=== PATIENT | female | born 1945 | race Caucasian/White ===

== ENCOUNTER 2017-12-19 09:35 | Outpatient (CLI) | payer MEDICARE, OTHER, SELFPAY ==
--- NOTE | 2017-12-19 09:27 | DI.RAD_ITS ---
SYMPTOM/DIAGNOSIS: F/U RT TKA AND LT TKA LEFT KNEE: The patient is status post TKR. The prosthesis is in good position. Surrounding bone intact with no change when compared with prior images. RIGHT KNEE: The patient is status post TKR. The prosthesis in good position. Surrounding bone intact.
== END 2017-12-19 09:55 ==
PROVIDERS: PCP Internal Medicine; Visit Provider Student in an Organized Health Care Education/Training Program
DX: Z96.653 Presence of artificial knee joint, bilateral (principal); Z47.1 Aftercare following joint replacement surgery; M17.0 Bilateral primary osteoarthritis of knee; E11.9 Type 2 diabetes mellitus without complications; Z79.84 Long term (current) use of oral hypoglycemic drugs; I10 Essential (primary) hypertension; M25.552 Pain in left hip
CPT/HCPCS: 99213; 73560

== ENCOUNTER 2018-06-03 00:58 | Outpatient (CLI) | payer MEDICARE, OTHER, SELFPAY ==
--- NOTE | 2018-06-03 08:30 | DI.MAMMO_ITS ---
SYMPTOM/DIAGNOSIS: SCREENING, Z12.31 MAMMOGRAMS: Mammograms were interpreted according to the usual protocol including computer analysis with CAD system, tomosynthesis and C view imaging. The breasts are of moderate density with fairly symmetrical distribution of fibroglandular tissue. No dominant mass or clumped microcalcification is identified in either breast. Nonspecific soft nodularity is noted at multiple sites bilaterally. No gross interval change in appearance in comparison with previous examinations including 07/2016. No new mass or clumped microcalcification is seen. CONCLUSION: No specific evidence of malignancy at this time. Routine screening examinations are suggested at yearly intervals in this age group according to the ACS/ACR guidelines. Category 1. Breast density, Category B. MQSA ASSESSMENT OF FINDINGS: Negative. Category 1. Patient will receive a letter notifying them of these results. BI-RADS category B. There are scattered areas of fibroglandular density.
== END 2018-06-03 01:18 ==
PROVIDERS: PCP Internal Medicine; Visit Provider Internal Medicine
DX: Z12.31 Encounter for screening mammogram for malignant neoplasm of breast (principal)
CPT/HCPCS: 77063; 77067

== ENCOUNTER 2018-09-17 07:49 | Outpatient (CLI) | payer MEDICARE, OTHER, SELFPAY ==
[2018-09-17 09:00] LABS: Anion Gap 12.5 mmol/L (3-11); BUN 15 mg/dL (7-18); CO2 26.5 mmol/L (21.0-32.0); Calcium 8.8 mg/dL (8.5-10.1); Calculated LDL 83 mg/dL; Chloride 104 mmol/L (98-107); Cholesterol 158 mg/dL (50-200); Glucose 193 mg/dL (70-100); HDL Cholesterol 44 mg/dL (40-60); Potassium 3.8 mmol/L (3.5-5.1); Sodium 143 mmol/L (136-145); Triglyceride 155 mg/dL (30-150)
[2018-09-17 12:18] LABS: COMMENT (LAB VIEW ONLY) 167.87 mg/dL; Microalb ug/mg Crea 23.4 ug/mg Cr
== END 2018-09-17 08:09 ==
PROVIDERS: PCP Internal Medicine; Visit Provider Internal Medicine
DX: I10 Essential (primary) hypertension (principal); E78.5 Hyperlipidemia, unspecified; E11.9 Type 2 diabetes mellitus without complications
CPT/HCPCS: 36415; 80048; 80061; 83721; 82043; 82570

== ENCOUNTER 2018-09-21 16:20 | Emergency (ER) | payer MEDICARE, OTHER, SELFPAY ==
[2018-09-21 16:24] VITALS: BP 158/102; PULSE 104; RESP 16; TEMP 36.3; O2SAT 94
--- NOTE | 2018-09-21 16:31 | DI.CT_ITS ---
SYMPTOM/DIAGNOSIS: FALL CT BRAIN: Noncontrast. No priors. There is mild prominence of the ventricles and sulci which may be due to age related cerebral atrophy. The ventricles are intact. The basilar cisterns are patent. No acute intracranial hemorrhage, midline shift or mass effect is identified. The ventricles are intact. The basilar cisterns arae patent. The visualizes paranasal sinuses are clear as are the mastoid air cells. The calvarium is intact. IMPRESSION: No acute intracranial process. CT CERVICAL SPINE: Multiple contiguous axial images of the cervical spine were obtained. Sagittal and coronal reformatted images were evaluated as well. No acute fracture or subluxation is seen. There is straightening of the normal cervical lordosis. This may be due to patient positioning, degenerative changes or muscle spasm. There are multi-level degenerative changes throughout the cervical spine. The findings are most marked at C-5,6 and C6-C7. There is no prevertebral soft tissue swelling. The lung apices are clear. IMPRESSION: No acute fracture or subluxation in the cervical spine.
--- NOTE | 2018-09-21 16:54 | ED.GENADUL_ITS ---
Discharge Plan Disposition Patient Disposition: HOME Condition: Stable Discharge Details Chief Complaint: Orthopedic Clinical Impression: Fall, Acute knee pain Primary Care Provider: Najma Suh ED Provider: Jeremy Burdick Home Meds and New Rx's Prescriptions: No Action fluticasone propionate [Flonase Allergy Relief] 50 mcg/actuation spray,suspension 2 spray CHRISTY DAILY Qty: 16 RF: 1 apixaban 5 mg tablet 5 mg PO BID Qty: 60 RF: 5 Degshxkerfd-Etbek-YLL Complex 1 EACH tablet 1 ea PO DAILY RF: 0 Varicella-Zoster Ge/As01b/Pf [Shingrix Vial Kit] 50 MCG INJ 50 mcg IM ONCE Qty: 1 RF: 1 atorvastatin 40 mg tablet 40 mg PO DAILY Qty: 90 RF: 3 chlorthalidone 25 mg tablet 12.5 mg PO DAILY Qty: 45 RF: 4 glipizide [Glucotrol] 5 mg tablet 10 mg PO BID Qty: 360 RF: 4 metformin [Glucophage] 500 mg tablet 500 mg PO BID Qty: 180 RF: 4 Januvia 100 mg tablet 100 mg PO DAILY Qty: 90 RF: 3 (DME) Blood Glucose Test strip See Dose Instructions .ROUTE .MEDSUPPLY Qty: 10 RF: 0 acetaminophen [Mapap Extra Strength] 500 MG tablet 1,000 mg PO Q8H PRN PRNQty: 120 RF: 0 docusate sodium [Colace] 100 MG capsule 100 mg PO BID PRN PRN (Reason: Constipation) RF: 0 calcium carbonate-vitamin D3 1 EACH tablet 1 ea PO DAILY RF: 0 Discharge Instructions Instructions: Knee Pain (ED) Additional Instructions: Please follow-up with your primary care doctor early this week please return to the emergency department for headache nausea vomiting increasing pain or other concern. Discharge Data Discharge Date/Time-TO BE ENTERED AT DEPARTURE: 09/21/18 20:07 Medical Decision Making 73-year-old female status post mechanical fall no loss of consciousness no shortness of breath no chest pain do not feel medical work-up is appropriate at this time. Patient with right knee swelling concern for mild effusion full range of motion no crepitus positive distal pulses distal neurovascular exam and popliteal pulses. Left knee mild tenderness palpation full range of motion no edema no effusion no ecchymosis will defer imaging. Neck with full range of motion but mild lateral tenderness positive headache no clear head trauma but patient on Eliquis. Will obtain plain films of the right knee had and C-spine CT scans and observe patient in the emergency department.. Patient resting comfortably scans negative x-ray right knee shows positive effusion consistent with exam no fracture no hardware changes will DC with pain control rest and strict return. HPI 73-year-old past medical history of diabetes GERD hypertension pulmonary embolus on Eliquis presents status post mechanical fall tripped over the side of her ramp up to her house falling onto right knee and striking her head against the house.no loss of consciousness no nausea vomiting positive headache positive neck pain positive right knee pain ambulatory with mild limp. Patient past medical history of obesity and bilateral knee replacement concerned that knee is swelling. No shortness of breath chest pain nausea vomiting diarrhea loss of consciousness fever chills or other complaints. General Date/Time Provider Initiated Documentation: 09/21/18 16:31 . Related Data Home Medications Medication Instructions Recorded Confirmed calcium carbonate-vitamin D3 1 ea PO DAILY 10/31/16 09/21/18 acetaminophen [Mapap Extra 1,000 mg PO Q8H PRN PRN #120 tab 01/06/17 09/21/18 Strength] docusate sodium [Colace] 100 mg PO BID PRN PRN cap 01/06/17 09/21/18 rbobudgj-phptr-jmo9-C-karen-bor 1 ea PO DAILY tab 08/29/17 09/21/18 [Hthnqhu-Egqvc-Nwt Complex Cplt] atorvastatin 40 mg tablet 40 mg PO DAILY #90 tab-cap 04/09/18 09/21/18 chlorthalidone 25 mg tablet 12.5 mg PO DAILY #45 tab-cap 04/09/18 09/21/18 glipizide 5 mg tablet 10 mg PO BID #360 tab-cap 04/09/18 09/21/18 metformin 500 mg tablet 500 mg PO BID #180 tab-cap 04/09/18 09/21/18 sitagliptin 100 mg tablet 100 mg PO DAILY #90 tab-cap 04/09/18 09/21/18 blood sugar diagnostic #10 each 04/17/18 09/03/18 apixaban 5 mg tablet 5 mg PO BID #60 tab 08/27/18 09/21/18 fluticasone propionate 50 2 spray CHRISTY DAILY #16 gm 08/27/18 09/21/18 mcg/actuation nasal spray,suspension Previous Rx's Medication Instructions Recorded acetaminophen [Mapap Extra 1,000 mg PO Q8H PRN PRN #120 tab 01/06/17 Strength] docusate sodium [Colace] 100 mg PO BID PRN PRN cap 01/06/17 atorvastatin 40 mg tablet 40 mg PO DAILY #90 tab-cap 04/09/18 chlorthalidone 25 mg tablet 12.5 mg PO DAILY #45 tab-cap 04/09/18 glipizide 5 mg tablet 10 mg PO BID #360 tab-cap 04/09/18 metformin 500 mg tablet 500 mg PO BID #180 tab-cap 04/09/18 sitagliptin 100 mg tablet 100 mg PO DAILY #90 tab-cap 04/09/18 apixaban 5 mg tablet 5 mg PO BID #60 tab 08/27/18 fluticasone propionate 50 2 spray CHRISTY DAILY #16 gm 08/27/18 mcg/actuation nasal spray,suspension Allergies Allergy/AdvReac Type Severity Reaction Status Date / Time grass pollen Allergy Mild Itching Verified 09/21/18 16:28 tree and shrub pollen Allergy Mild Itching Verified 09/21/18 16:28 dust Allergy Mild Swelling/Ed Uncoded 09/21/18 16:28 anson General Stated Complaint: Orthopedic CEE: 4 Review of Systems Review of Systems All systems reviewed & are unremarkable except as noted in HPI and below PFSH Medical History DM (diabetes mellitus) GERD (gastroesophageal reflux disease) HTN (hypertension) PE (pulmonary thromboembolism) Surgical History (Updated 09/21/18 @ 16:29 by Katlin Arias) back surgery Colonoscopy - IV Sedation (03/10/16) finger surgery History of bilateral knee replacement (Acute) Oophrectomy, Right Family History Mother Diabetes Father Diabetes Heart disease Stroke Brother Heart disease Brother No problems noted. 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 Working smoke detector in home: No Fire extinguisher in home: No Do you feel safe at home: Yes Exam Const General: cooperative, healthy appearing, no acute distress, well developed and well groomed Nutritional Appearance: well nourished Orientation: alert, awake and oriented x3 HENMT Head: normal to inspection, normocephalic and atraumatic Ears: hearing grossly normal bilaterally and external ears normal General nose exam: external nose normal Face and sinus: normal facial exam Mouth: oral mucosae normal and lip normal Eyes Conjunctivae: conjunctivae normal Sclera: sclerae normal Neck Neck: No JVD Chest Chest: normal inspection of the chest Resp Effort & Inspection: normal respiratory effort and able to speak in complete sentences Auscultation: clear to auscultation bilaterally Cardio Jugular venous pressure: no JVD Rate: regular rate Rhythm: regular rhythm Heart Sounds: no murmurs GI Inspection: normal to inspection Palpation: soft, firm and guarding Percussion: normal to percussion Skin General skin exam: no rashes or lesions noted Lesions: no lesions Rashes: no rashes Trauma: no lacerations or abrasions Neuro General: alert, awake and oriented x3 Cognition: normal cognition Motor: muscle tone normal throughout Sensory Exam: no sensory deficits noted Extrem General: normal to inspection Right upper extremity: normal to inspection Left upper extremity: normal to inspection Psych Appearance: grossly normal Mental Status: mental status grossly normal Speech and Movement: speech and movement normal Course Vital Signs Temperature 36.3 C L 09/21/18 16:24 Pulse 104 H 09/21/18 16:24 Respiratory Rate 16 09/21/18 16:24 Blood Pressure 158/102 H 09/21/18 16:24 Pulse Oximetry 94 L 09/21/18 16:24 Temperature 36.3 C L 09/21/18 16:24 Temperature Source Skin 09/21/18 16:24 Pulse 104 H 09/21/18 16:24 Respiratory Rate 16 09/21/18 16:24 Respiratory Effort Non-Labored 09/21/18 16:27 Blood Pressure 158/102 H 09/21/18 16:24 Blood Pressure Position Sitting 09/21/18 16:24 Pulse Oximetry 94 L 09/21/18 16:24 Pain Level 6 09/21/18 16:32
--- NOTE | 2018-09-21 17:55 | DI.RAD_ITS ---
SYMPTOM/DIAGNOSIS: FALL RIGHT KNEE: Three views. Comparison 12/19/17 The patient has a right total knee replacement. No evidence of hardware failure is seen. The bones are intact and normally mineralized. Portions of the patella are obscured on the lateral view by the overlying orthopaedic hardware. There does appear to be a small joint effusion and vascular calcifications. IMPRESSION: No acute fracture or dislocation.
--- NOTE | 2018-09-21 18:04 | DI.VRAD_ITS ---
EXAM: XR Right Knee EXAM DATE/TIME: 09/21/2018 4:33 PM CLINICAL HISTORY: 73 years old, female; Pain; Right; Prior surgery; Surgery date: 6+ months; Surgery type: Tkr; Patient HX: S/P fall, total knee replacement 3 years ago TECHNIQUE: Imaging protocol: XR Right knee. Views: 3 views. COMPARISON: CR XR knee RT 2V AP,lat 12/19/2017 9:58 AM FINDINGS: Bones/joints: There is a total knee replacement without obvious change since 12/19/2017. This be a small joint effusion. There is no acute fracture. There is no identifiable areas of loosening. Note the articular surface the patella is obscured by the metallic femoral component. Soft tissues: Normal. Vasculature: There is mild diffuse atherosclerotic calcification. IMPRESSION: Small joint effusion but no other acute abnormality. Dictated and Authenticated by: Rui Luo MD. Ordering:ART Luna MD
--- NOTE | 2018-09-21 18:32 | DI.VRAD_ITS ---
EXAM: CT Head Without Contrast EXAM DATE/TIME: 09/21/2018 5:31 PM CLINICAL HISTORY: 73 years old, female; Injury or trauma; Initial encounter; Sprain or strain, cervical ligaments; Patient HX: S/P fall TECHNIQUE: Imaging protocol: Computed tomography images of the head without contrast. Coronal and sagittal reformatted images were created and reviewed. Radiation optimization: All CT scans at this facility use at least one of these dose optimization techniques: automated exposure control; mA and/or kV adjustment per patient size (includes targeted exams where dose is matched to clinical indication); or iterative reconstruction. COMPARISON: No relevant prior studies available. FINDINGS: Brain: There is no acute intracranial hemorrhage, mass effect, extra-axial fluid collections. Cortical sulci over the frontal lobes are also larger than average for age. Ventricles: The ventricles are slightly larger than average for age. Bones/joints: Unremarkable. No acute fracture. Sinuses: Visualized sinuses are unremarkable. No fluid levels. Mastoid air cells: Visualized mastoid air cells are well aerated. No mastoid effusion. Soft tissues: Unremarkable. IMPRESSION: Mildly prominent atrophy for age but no acute abnormality. EXAM: CT Cervical Spine Without Contrast EXAM DATE/TIME: 09/21/2018 5:31 PM CLINICAL HISTORY: 73 years old, female; Injury or trauma; Initial encounter; Sprain or strain, cervical ligaments; Patient HX: S/P fall TECHNIQUE: Imaging protocol: Computed tomography images of the cervical spine without contrast. Coronal and sagittal reformatted images were created and reviewed. Radiation optimization: All CT scans at this facility use at least one of these dose optimization techniques: automated exposure control; mA and/or kV adjustment per patient size (includes targeted exams where dose is matched to clinical indication); or iterative reconstruction. COMPARISON: No relevant prior studies available. FINDINGS: Vertebrae: There is mild sclerosis. There is no acute fracture or subluxation. There are mild degenerative changes of the atlantoaxial joint C2-C3: No disc herniation. No spinal stenosis. No neural foraminal narrowing. C3-C4: No disc herniation. No spinal stenosis. No neural foraminal narrowing. C4-C5: No disc herniation. No spinal stenosis. No neural foraminal narrowing. C5-C6: C6-C7: There is a mild disc osteophyte complex at both these levels causing mild stenosis of the spinal canal and neural foramina bilaterally. There is severe loss of disc height at the C5-6 and C6-7. There are large anterolateral osteophytes at both these levels. C7-T1: No disc herniation. No spinal stenosis. No neural foraminal narrowing. Soft tissues: Unremarkable. Prevertebral Space: There is no prevertebral soft tissue swelling. Vasculature: There is severe atherosclerosis the visualized portion of the aortic arch. Lungs: Lung apices are normal. IMPRESSION: 1. No acute fracture or subluxation. 2. 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 Ordering:ART Luna MD
== END 2018-09-21 20:07 | disposition home or self-care (01) ==
PROVIDERS: Emergency Provider Emergency Medicine; PCP Internal Medicine
DX: M54.2 Cervicalgia (principal); M25.561 Pain in right knee; M25.562 Pain in left knee; R51 Headache; E11.9 Type 2 diabetes mellitus without complications; I10 Essential (primary) hypertension; W01.198A Fall on same level from slipping, tripping and stumbling with subsequent striking against other object, initial encounter; Z79.01 Long term (current) use of anticoagulants; Z79.84 Long term (current) use of oral hypoglycemic drugs
CPT/HCPCS: 73562; 99284; 70450; 72125

== ENCOUNTER 2018-10-01 01:07 | Emergency (ER) | payer MEDICARE, OTHER, SELFPAY ==
--- NOTE | 2018-10-01 01:09 | W.ED.GENAD ---
Discharge Plan Disposition Patient Disposition: HOME Condition: Good Discharge Details Chief Complaint: Orthopedic Clinical Impression: Arthritis of left hip Primary Care Provider: Najma Suh ED Provider: Robert Norwood Home Meds and New Rx's Prescriptions: New lidocaine [Lidoderm] 1 PATCH patch 1 patch Topical Q24H Qty: 4 RF: 0 Continued fluticasone propionate [Flonase Allergy Relief] 50 mcg/actuation spray,suspension 2 spray CHRISTY DAILY Qty: 16 RF: 1 apixaban 5 mg tablet 5 mg PO BID Qty: 60 RF: 5 Kcuyyrjxzow-Gvygc-JHR Complex 1 EACH tablet 1 ea PO DAILY RF: 0 Varicella-Zoster Ge/As01b/Pf [Shingrix Vial Kit] 50 MCG INJ 50 mcg IM ONCE Qty: 1 RF: 1 atorvastatin 40 mg tablet 40 mg PO DAILY Qty: 90 RF: 3 chlorthalidone 25 mg tablet 12.5 mg PO DAILY Qty: 45 RF: 4 glipizide [Glucotrol] 5 mg tablet 10 mg PO BID Qty: 360 RF: 4 metformin [Glucophage] 500 mg tablet 500 mg PO BID Qty: 180 RF: 4 Januvia 100 mg tablet 100 mg PO DAILY Qty: 90 RF: 3 (DME) Blood Glucose Test strip See Dose Instructions .ROUTE .MEDSUPPLY Qty: 10 RF: 0 acetaminophen [Mapap Extra Strength] 500 MG tablet 1,000 mg PO Q8H PRN PRNQty: 120 RF: 0 docusate sodium [Colace] 100 MG capsule 100 mg PO BID PRN PRN (Reason: Constipation) RF: 0 calcium carbonate-vitamin D3 1 EACH tablet 1 ea PO DAILY RF: 0 Discharge Instructions Instructions: Arthritis (ED) Additional Instructions: Your x-ray shows no significant fracture but it does show arthritis. Please take up to 1000 mg of Tylenol every 6 hours as needed for pain. Please follow-up with your orthopedic surgeon for reassessment. If you notice any worsening of your symptoms, or any new symptoms such as vomiting, diarrhea, fever, chills, shortness of breath, chest pain, numbness, weakness, or fainting , please return immediately to the emergency department for reevaluation. Please follow up with your primary care provider as soon as possible for reassessment and reevaluation. As always, it was a pleasure participating in your medical care today. Referrals: Najma Suh MD [Primary Care Provider] - Medical Decision Making This is a pleasant 73-year-old female with a past medical history of a PE on Eliquis, previous bilateral knee replacements, GERD, hypertension, who presents today for evaluation of left hip pain. Pain is been present for the last few days, no initial inciting event. Made worse with weightbearing on the left. Mild achiness. No radiation into the abdomen or down the leg. Neurovascular exam is benign. She denies any other complaints or modifying factors. Exam demonstrates no crepitus, or decrease in range of motion. Signs and symptoms appear consistent with notable arthritis of the left hip. X-ray was ordered and shows no evidence of significant acute fracture. Patient was given Lidoderm patch, recommend Tylenol at home, and close follow-up with floral department specialist for reassessment and discussion of potential surgical options of replacement. Discussed red flags which to return. I have extensively reviewed the treatment plan and discharge instructions with the patient and their family. I have addressed all patient concerns at this time. The patient and family was made aware of what symptoms to monitor for that would warrant a return to the emergency department. Discussed the plan with the patient and family, they demonstrate verbal understanding and agreement with our assessment and plan at this time. FINDINGS: Bones/joints: Degenerative changes noted in the left hip and lower lumbar spine No acute fracture. Soft tissues: Normal. IMPRESSION: No acute fracture observed Thank you for allowing us to participate in the care of your patient. Dictated and Authenticated by: Fabian Mace MD [facility] General Date/Time Provider Initiated Documentation: 10/01/18 01:08. HPI Narrative: 73-year-old past medical history of diabetes GERD hypertension pulmonary embolus on Eliquis who had a recent fall on 09/21/2018 with radiographs of her right knee, and her neck. She presents today for evaluation of left hip pain. She denies any recent falls or trauma since 09/21. She has noticed over the last few days generalized achy pain in her left hip. Made worse with ambulation, and also when she is lying and trying to sleep. She denies any injury to the site, or any significant preceding event. She denies any associated numbness tingling or weakness. She denies any pain in the abdomen, knee, or chest. She has had bilateral knee replacements performed by Dr. Perez in the past. She has no other complaints at this time. No other modifying factors. Related Data Home Medications Medication Instructions Recorded Confirmed calcium carbonate-vitamin D3 1 ea PO DAILY 10/31/16 10/01/18 acetaminophen [Mapap Extra 1,000 mg PO Q8H PRN PRN #120 tab 01/06/17 10/01/18 Strength] docusate sodium [Colace] 100 mg PO BID PRN PRN cap 01/06/17 10/01/18 Kbjvcerjvrp-Fzzdf-NAL Complex 1 ea PO DAILY tab 08/29/17 10/01/18 atorvastatin 40 mg tablet 40 mg PO DAILY #90 tab-cap 04/09/18 10/01/18 chlorthalidone 25 mg tablet 12.5 mg PO DAILY #45 tab-cap 04/09/18 10/01/18 glipizide 5 mg tablet 10 mg PO BID #360 tab-cap 04/09/18 10/01/18 metformin 500 mg tablet 500 mg PO BID #180 tab-cap 04/09/18 10/01/18 sitagliptin 100 mg tablet 100 mg PO DAILY #90 tab-cap 04/09/18 10/01/18 blood sugar diagnostic #10 each 04/17/18 09/25/18 apixaban 5 mg tablet 5 mg PO BID #60 tab 08/27/18 10/01/18 fluticasone propionate 50 2 spray CHRISTY DAILY #16 gm 08/27/18 10/01/18 mcg/actuation nasal spray,suspension lidocaine [Lidoderm] 1 patch TOPICAL Q24H #4 patch 10/01/18 Previous Rx's Medication Instructions Recorded acetaminophen [Mapap Extra 1,000 mg PO Q8H PRN PRN #120 tab 01/06/17 Strength] docusate sodium [Colace] 100 mg PO BID PRN PRN cap 01/06/17 atorvastatin 40 mg tablet 40 mg PO DAILY #90 tab-cap 04/09/18 chlorthalidone 25 mg tablet 12.5 mg PO DAILY #45 tab-cap 04/09/18 glipizide 5 mg tablet 10 mg PO BID #360 tab-cap 04/09/18 metformin 500 mg tablet 500 mg PO BID #180 tab-cap 04/09/18 sitagliptin 100 mg tablet 100 mg PO DAILY #90 tab-cap 04/09/18 apixaban 5 mg tablet 5 mg PO BID #60 tab 08/27/18 fluticasone propionate 50 2 spray CHRISTY DAILY #16 gm 08/27/18 mcg/actuation nasal spray,suspension lidocaine [Lidoderm] 1 patch TOPICAL Q24H #4 patch 10/01/18 Allergies Allergy/AdvReac Type Severity Reaction Status Date / Time grass pollen Allergy Mild Itching Verified 10/01/18 01:29 tree and shrub pollen Allergy Mild Itching Verified 10/01/18 01:29 dust Allergy Mild Swelling/Ed Uncoded 10/01/18 01:29 anson General CEE: 4 Review of Systems Review of Systems All systems reviewed & are unremarkable except as noted in HPI and below PFSH Medical History DM (diabetes mellitus) GERD (gastroesophageal reflux disease) HTN (hypertension) PE (pulmonary thromboembolism) Surgical History (Updated 09/21/18 @ 16:29 by Katlin Arias) back surgery Colonoscopy - IV Sedation (03/10/16) finger surgery History of bilateral knee replacement (Acute) Oophrectomy, Right Family History Mother Diabetes Father Diabetes Heart disease Stroke Brother Heart disease Brother No problems noted. 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 3.ENT: Atraumatic external nose and ears. Moist MM. Neck: Symmetric, trachea midline, No thyromegaly. 4.CVS: +S1/S2, No murmurs or gallops. Peripheral pulses 2+ and equal in all extremities. Brisk capillary refill in all extremities. 5.RESP: Unlabored respiratory effort. Clear to auscultation bilaterally. No wheezes rales or rhonchi 6.GI: Soft, Nontender/Nondistended, No hepatosplenomegaly. No guarding or rebound. 7.MSK: Normocephalic/Atraumatic, Extremities w/o deformity or ttp No cyanosis or clubbing, Normal movement of all extremities. Bilateral old scars from knee replacements. No pain with logroll of either leg. Mild pain on palpation of the greater trochanter for the left hip. No significant reduction in range of motion, internal or external rotation, flexion or extension. Mild pain with weightbearing. No other significant abnormalities. Sensation intact throughout. Capillary refill brisk. Cells pedis and posterior tibial pulse +2 bilaterally. Pelvis is stable to lateral and posterior compression. 8.Skin: Warm, Dry. No rashes or lesions. 9.Neuro: ecologist II-XII grossly intact. Sensation grossly intact, no focal neurologic deficits. 10.Psych: (AAO) x3. Appropriate mood and affect
[2018-10-01 01:10] VITALS: BP 152/91; PULSE 95; RESP 18; TEMP 36.4; O2SAT 96
[2018-10-01] MEDS: Lidocaine 5% Patch 1 PATCH TP (01:24)
--- NOTE | 2018-10-01 01:45 | DI.RAD_ITS ---
SYMPTOM/DIAGNOSIS: PAIN IN LEFT HIP, FALL 1 WEEK AGO LEFT HIP AND PELVIS: Three views. No healing fracture or dislocation is identified. Degenerative changes are seen in the lumbar spine and left hip. Soft tissues are unremarkable. IMPRESSION: No acute fracture or dislocation.
--- NOTE | 2018-10-01 03:42 | DI.VRAD_ITS ---
EXAM: XR Left Hip with Pelvis when Performed EXAM DATE/TIME: 10/01/2018 1:18 AM CLINICAL HISTORY: 73 years old, female; Patient HX: Left hip pain posterior; Additional info: Fell 10 days ago TECHNIQUE: Imaging protocol: XR Left hip with pelvis when performed. Views: 2 or 3 views. COMPARISON: CR LEFT HIP COMPLETE \T\ AP PELVIS 04/30/2014 8:29 AM FINDINGS: Bones/joints: Degenerative changes noted in the left hip and lower lumbar spine No acute fracture. Soft tissues: Normal. IMPRESSION: No acute fracture observed Dictated and Authenticated by: Fabian Mace MD. Ordering:ANTONIA Jones MD
== END 2018-10-01 02:35 | disposition home or self-care (01) ==
PROVIDERS: Emergency Provider Student in an Organized Health Care Education/Training Program; PCP Internal Medicine
DX: M16.12 Unilateral primary osteoarthritis, left hip (principal); I10 Essential (primary) hypertension; Z79.01 Long term (current) use of anticoagulants; Z96.651 Presence of right artificial knee joint; Z96.652 Presence of left artificial knee joint
CPT/HCPCS: 99283; 73502

== ENCOUNTER 2018-12-20 09:12 | Outpatient (CLI) | payer MEDICARE, OTHER, SELFPAY ==
--- NOTE | 2018-12-20 09:02 | DI.RAD_ITS ---
EXAM: XR KNEE LT 3V AP,LAT,BENITO INDICATION: ANNUAL F/U. COMPARISON: XR knee RT 2V AP,lat from 12/19/2017 XR KNEE RT 3V AP,LAT,BENITO from 12/20/2018 XR KNEE RT 3V AP,LAT,BENITO from 12/20/2018 TECHNIQUE: 2D digital imaging was performed. FINDINGS: There has been no significant change in the bilateral total knee prostheses. No abnormal bony lucen cies are seen. IMPRESSION:
== END 2018-12-20 09:32 ==
PROVIDERS: PCP Internal Medicine; Referring Provider Internal Medicine; Visit Provider Student in an Organized Health Care Education/Training Program
DX: M17.0 Bilateral primary osteoarthritis of knee (principal); Z96.653 Presence of artificial knee joint, bilateral; Z47.1 Aftercare following joint replacement surgery; E11.9 Type 2 diabetes mellitus without complications; I10 Essential (primary) hypertension; Z79.84 Long term (current) use of oral hypoglycemic drugs
CPT/HCPCS: 73562; 99213

== ENCOUNTER 2019-07-16 13:36 | Outpatient (REF) | payer OTHER, SELFPAY ==
[2019-07-16 20:28] LABS: Anion Gap 5.9 mmol/L (3-11); BUN 24 mg/dL (7-18); CO2 32.1 mmol/L (21.0-32.0); CREATININE 0.93 mg/dL (0.55-1.02); Calcium 9.2 mg/dL (8.5-10.1); Calculated LDL 83 mg/dL (<100); Chloride 103 mmol/L (98-107); Cholesterol 157 mg/dL (<200); Glucose 128 mg/dL (74-106); HDL Cholesterol 46 mg/dL (40-60); Potassium 3.8 mmol/L (3.5-5.1); Sodium 141 mmol/L (136-145); Triglyceride 143 mg/dL (<150)
[2019-07-16 20:52] LABS: COMMENT (LAB VIEW ONLY) 127.54 mg/dL; Microalb ug/mg Crea 42.1 ug/mg Cr
== END 2019-07-16 13:56 ==
LOC: LBO 13:36
PROVIDERS: PCP Internal Medicine; Visit Provider Internal Medicine
DX: I10 Essential (primary) hypertension (principal); E78.00 Pure hypercholesterolemia, unspecified; E11.9 Type 2 diabetes mellitus without complications
CPT/HCPCS: 80048; 80061; 82043; 82570

== ENCOUNTER 2020-06-14 04:12 | Outpatient (CLI) | payer OTHER, SELFPAY ==
[2020-06-14 09:47] LABS: Anion Gap 6.7 mmol/L (3-11); BUN 20 mg/dL (7-18); CO2 30.3 mmol/L (21.0-32.0); Calcium 9.1 mg/dL (8.5-10.1); Calculated LDL 86 mg/dL (<100); Chloride 99 mmol/L (98-107); Cholesterol 177 mg/dL (<200); Glucose 290 mg/dL (74-106); HDL Cholesterol 47 mg/dL (40-60); Potassium 3.9 mmol/L (3.5-5.1); Sodium 136 mmol/L (136-145); Triglyceride 221 mg/dL (<150)
[2020-06-14 11:16] LABS: COMMENT (LAB VIEW ONLY) 109.16 mg/dL; Microalb ug/mg Crea 133.7 ug/mg Cr
== END 2020-06-14 04:13 | disposition home or self-care (01) ==
LOC: LBO 04:12
PROVIDERS: PCP Internal Medicine; Visit Provider Internal Medicine
DX: E78.00 Pure hypercholesterolemia, unspecified (principal); I10 Essential (primary) hypertension; E11.319 Type 2 diabetes mellitus with unspecified diabetic retinopathy without macular edema
CPT/HCPCS: 36415; 80048; 80061; 82043; 82570

== ENCOUNTER 2020-08-20 17:07 | Emergency (ER) | payer OTHER, SELFPAY ==
[2020-08-20 17:24] VITALS: BP 164/83; PULSE 76; RESP 22; TEMP 36.6; O2SAT 95
--- NOTE | 2020-08-20 17:30 | DI.RAD_ITS ---
Exam(s) XR RIBS RT W PA LAT CHEST EXAM: XR RIBS RT W PA LAT CHEST CLINICAL HISTORY: Fall, R/O Fracture TECHNIQUE: 2D digital imaging was performed. COMPARISON: CR CHEST 2 VIEWS PA,LAT from 03/03/2012 FINDINGS: There are no acute right rib fractures evident. No lytic rib lesions identified. No obvious clavicl e fracture. No lung contusion or pneumothorax. There is no pleural effusion evident. Heart size is normal and there is no significant mediastinal widening. IMPRESSION: 1. No rib fractures evident. Also no obvious rib lesions. 2. No acute pulmonary findings. DATA REPOSITORY: RADIATION DOSE DELIVERED:
--- NOTE | 2020-08-20 17:30 | DI.RAD_ITS ---
Exam(s) XR HAND RT COMPLETE EXAM: XR HAND RT COMPLETE CLINICAL HISTORY: Fall R/O Fracture. TECHNIQUE: 2D digital imaging was performed. COMPARISON: No exams were available for comparison FINDINGS: There is no evidence of acute fracture or dislocation no radiopaque foreign body. Distal half of the distal phalanx of the 2nd-index finger is absent and this has appearance remote tr auma. There is a tiny submillimeter density in soft tissues off the lateral aspect of the base the proximal phalanx of the 2nd-index finger. And no overlying lacerations seen. There are some degenerative changes noted in the DIP joints. No erosions. IMPRESSION: DATA REPOSITORY: RADIATION DOSE DELIVERED:
--- NOTE | 2020-08-20 17:30 | DI.RAD_ITS ---
Exam(s) XR KNEE RT 3V AP,LAT,BENITO EXAM: XR KNEE RT 3V AP,LAT,BENITO CLINICAL HISTORY: Fall, R/O Fracture. TECHNIQUE: 2D digital imaging was performed. COMPARISON: CR XR KNEE LT 3V AP,LAT,BENITO from 12/20/2018 FINDINGS: Position and alignment of the components of the right knee arthroplasty are stable with no fracture o r loosening evident. There is soft tissue swelling noted anterior to the patella. No patellar fract ure. IMPRESSION: DATA REPOSITORY: RADIATION DOSE DELIVERED:
--- NOTE | 2020-08-20 17:38 | W.ED.GENAD ---
Discharge Plan Disposition Patient Disposition: HOME Condition: Stable Discharge Details Clinical Impression: Fall (on) (from) other stairs and steps, initial encounter, Chest wall pain Primary Care Provider: Najma Suh ED Provider: Collette Aguirre Home Meds and New Rx's Prescriptions: Continued Lantus Solostar U-100 Insulin 100 unit/mL (3 mL) insulin pen 10 unit subcut QPM Qty: 1 RF: 0 Salonpas 3.1-10-6 % adhesive patch,medicated 1 patch TP PRN RF: 0 Rdgrqcqwnmt-Vwuqu-OYB Complex 1 EACH tablet 1 ea PO DAILY RF: 0 Varicella-Zoster Ge/As01b/Pf [Shingrix Vial Kit] 50 MCG INJ 50 mcg IM ONCE Qty: 1 RF: 1 (DME) Blood Glucose Test strip See Dose Instructions .ROUTE .MEDSUPPLY Qty: 10 RF: 0 losartan 25 mg tablet 25 mg PO DAILY Qty: 30 RF: 0 atorvastatin 40 mg tablet 40 mg PO DAILY Qty: 90 RF: 3 chlorthalidone 25 mg tablet 12.5 mg PO DAILY Qty: 45 RF: 3 glipizide [Glucotrol] 5 mg tablet 10 mg PO BID Qty: 360 RF: 3 metformin [Glucophage] 500 mg tablet 500 mg PO BID Qty: 180 RF: 3 (DME) pen needle, diabetic [BD Ultra-Fine Short Pen Needle] 31 gauge x 5/16 needle See Rx Instructions .ROUTE .MEDSUPPLY Qty: 100 RF: 4 acetaminophen [Mapap Extra Strength] 500 MG tablet 1,000 mg PO Q8H PRN PRNQty: 120 RF: 0 docusate sodium [Colace] 100 MG capsule 100 mg PO BID PRN PRN (Reason: Constipation) RF: 0 calcium carbonate-vitamin D3 1 EACH tablet 1 ea PO DAILY RF: 0 warfarin 5 mg tablet See Rx Instructions mg .ROUTE .COMPLEX RF: 0 Discharge Instructions Instructions: Fall Prevention (ED), Chest Wall Pain (ED) Additional Instructions: At this time there is no evidence for acute fractures or broken bones on the x-rays of the right knee, right ribs or hand. Rest, ice, compression, elevation. You may apply lidocaine patches which she can obtain [id number] to the right chest wall if needed. Take Tylenol as needed for pain and swelling. Please return to the ED for any worsening pain, shortness of breath, significant swelling or any concerns. Follow up with primary care provider in 3-5 days. Return to ED sooner if any worsening or concerns. Increase oral fluids. Referrals: Najma Suh MD [Primary Care Provider] - Discharge Data Discharge Date/Time-TO BE ENTERED AT DEPARTURE: 08/20/20 19:20 Medical Decision Making 75-year-old female presents to the ER chief complaint of mechanical fall approximately 1 hour prior to arrival. Patient states that she tripped on some cement landing on her right side. She is complaining of right knee pain, right hand pain and right-sided rib pain. She denies hitting her head no loss of consciousness was able to get up after the fall. She not take any medications prior to arrival. She does take warfarin on a daily basis for history of blood clots. She has also history of bilateral knee replacements, obesity, migraine, hypertension, diabetes. Past surgical history includes back surgery, she is wearing a lower lumbar back brace at this time. TECHNIQUE: Imaging protocol: XR Right hand. Views: 3 or more views. COMPARISON: No relevant prior studies available. FINDINGS: Bones/joints: Osteopenia. Scattered mild arthritic features of the interphalangeal joints. No acute fracture. No dislocation. Old trauma to the right 2nd finger distal phalanx tuft. Soft tissues: No soft tissue swelling or foreign body. TFCC degenerative calcification. IMPRESSION: 1. No acute fracture or dislocation. 2. Scattered mild arthritic features of the interphalangeal joints. 3. Appearance suggesting an old trauma to the tip of the right 2nd finger. Thank you for allowing us to participate in the care of your patient. Dictated and Authenticated by: Gaston Vazquez MD IMPRESSION: No rib fracture. No focal rib lesion. PROCEDURE INFORMATION: Exam: XR Chest Exam date and time: 08/20/2020 5:38 PM Age: 75 years old Clinical indication: Right-sided; Chest wall pain TECHNIQUE: Imaging protocol: XR of the chest. HIMANSHU ARBOLEDA Preliminary Radiology Report COMMUNITY FACILITATOR (QA) DISCREPANCY? If there is a discrepancy between the preliminary and final interpretation, please notify [facility] via [email or web address]. If you do not have access to our QA portal, call our QA team at [phone] CONFIDENTIALITY STATEMENT This report is intended only for the use of the referring physician, and only in accordance with law, If you received this in error, call [phone] Page 2 of 2 Views: 2 views. COMPARISON: CT HEAD CERVICAL SPINE WO 09/21/2018 5:34 PM FINDINGS: Lungs: Lung pulido are clear. No infiltrates. No consolidation. Pleural spaces: No pleural effusion. No pneumothorax. Heart/Mediastinum: Mild cardiac enlargement. Bones/joints: Degenerative thoracic spine disease. IMPRESSION: Clear lungs and pleural space. Patient discharged home with home care alternate ice and heat and strict return instructions return for any worsening symptoms. This text was generated using for[MD]ation system, please disregard any oddities of phrase or misspellings. HPI General Mode of arrival: ambulatory. Date/Time Provider Initiated Documentation: 08/20/20 17:31. Limitations to Documentation: no limitations. Information obtained by: patient. HPI Narrative: 75-year-old female presents to the ER chief complaint of mechanical fall approximately 1 hour prior to arrival. Patient states that she tripped on some cement landing on her right side. She is complaining of right knee pain, right hand pain and right-sided rib pain. She denies hitting her head no loss of consciousness was able to get up after the fall. She not take any medications prior to arrival. She does take warfarin on a daily basis for history of blood clots. She has also history of bilateral knee replacements, obesity, migraine, hypertension, diabetes. Past surgical history includes back surgery, she is wearing a lower lumbar back brace at this time. Related Data Home Medications Medication Instructions Recorded Confirmed calcium carbonate-vitamin D3 1 ea PO DAILY 10/31/16 08/20/20 acetaminophen [Mapap Extra 1,000 mg PO Q8H PRN PRN #120 tab 01/06/17 08/20/20 Strength] docusate sodium [Colace] 100 mg PO BID PRN PRN cap 01/06/17 08/20/20 Vufrmkfgfmt-Tpjme-ZUH Complex 1 ea PO DAILY tab 08/29/17 08/20/20 blood sugar diagnostic #10 each 02/13/19 10/14/20 camphor 3.1 %-methyl salicylate 10 1 patch TP PRN each 07/16/19 08/20/20 %-menthol 6 % topical patch losartan 25 mg tablet 25 mg PO DAILY #30 tab 10/25/19 08/20/20 atorvastatin 40 mg tablet 40 mg PO DAILY #90 tab-cap 02/23/20 08/20/20 chlorthalidone 25 mg tablet 12.5 mg PO DAILY #45 tab-cap 02/23/20 08/20/20 glipizide 5 mg tablet 10 mg PO BID #360 tab-cap 02/23/20 08/20/20 metformin 500 mg tablet 500 mg PO BID #180 tab-cap 02/23/20 08/20/20 insulin glargine 100 unit/mL (3 10 unit SUBCUT QPM #1 syrg 06/16/20 08/20/20 mL) subcutaneous pen pen needle, diabetic 31 gauge x #100 ea 06/23/2007/18 warfarin See Rx Instructions .ROUTE .COMPLEX 08/20/20 08/20/20 Previous Rx's Medication Instructions Recorded acetaminophen [Mapap Extra 1,000 mg PO Q8H PRN PRN #120 tab 01/06/17 Strength] docusate sodium [Colace] 100 mg PO BID PRN PRN cap 01/06/17 losartan 25 mg tablet 25 mg PO DAILY #30 tab 10/25/19 atorvastatin 40 mg tablet 40 mg PO DAILY #90 tab-cap 02/23/20 chlorthalidone 25 mg tablet 12.5 mg PO DAILY #45 tab-cap 02/23/20 glipizide 5 mg tablet 10 mg PO BID #360 tab-cap 02/23/20 metformin 500 mg tablet 500 mg PO BID #180 tab-cap 02/23/20 insulin glargine 100 unit/mL (3 10 unit SUBCUT QPM #1 syrg 06/16/20 mL) subcutaneous pen pen needle, diabetic 31 gauge x #100 ea 06/23/2007/18 Allergies Allergy/AdvReac Type Severity Reaction Status Date / Time grass pollen Allergy Mild Itching Verified 08/20/20 17:27 tree and shrub pollen Allergy Mild Itching Verified 08/20/20 17:27 lisinopril AdvReac Mild cough Verified 08/20/20 17:27 dust Allergy Mild Swelling/Ed Uncoded 08/20/20 17:27 anson General Stated Complaint: Trauma CEE: 3 Review of Systems All systems reviewed & are unremarkable except as noted in HPI and below Musculoskeletal Musculoskeletal: Reports as per HPI Comments: Right rib pain, right knee pain, right hand pain. [facility]LY [facility] Medical History DM (diabetes mellitus) GERD (gastroesophageal reflux disease) HTN (hypertension) [facility] current use of anticoagulants with INR goal of 2.0-3.0 (01/07/15) PE (pulmonary thromboembolism) Surgical History back surgery herniated disc ~1983 Colonoscopy - IV Sedation (03/10/16) finger surgery right index finger History of bilateral knee replacement Oophrectomy, Right Family History Mother Diabetes Father Diabetes Heart disease Stroke Brother Heart disease Brother No problems noted. 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 Appears stated age. Normal body habitus. Head: Normocephalic, no obvious signs of trauma no hematomas no abrasions. Eyes: Pupils PERRLA, Red reflex noted, EOM's intact. Eyelids symmetrical without lesions, discharge, or swelling. ENT: Bilateral TM's WNL, External ear normal to inspection, no mastoid TTP, swelling, or erythema, Nasal turbinates WNL, no nasal discharge. Normal dentition, Posterior pharynx WNL, no exudate. Chest: RRR, Normal S1, S2, distal pulses intact. Tenderness noted to the right lateral rib cage, no crepitus no step-off no ecchymosis noted. Resp: Lungs clear to auscultation bilaterally, no wheezes, rales, or rhonchi. Musculoskeletal: Normal gait, 5/5 strength to all four extremities. Tenderness and slight swelling noted to the lateral joint space. No obvious deformity no crepitus. Right dorsal hand contusion noted full range of motion of fingers and wrist. Skin: No suspicious rashes or lesions. Capillary refill less than 2 sec. Neurologic: Cranial nerves II-XII intact. Alert and oriented x 3. DTR's intact. Hematologic/Lymphatic: No ecchymosis, no lymphadenopathy. Course Vital Signs Vital signs: Vital Signs Temperature 36.6 C 08/20/20 17:24 Pulse 76 08/20/20 17:24 Respiratory Rate 22 08/20/20 17:24 Blood Pressure 164/83 H 08/20/20 17:24 Pulse Oximetry 95 08/20/20 17:24 Temperature 36.6 C 08/20/20 17:24 Temperature Source Skin 08/20/20 17:24 Pulse 76 08/20/20 17:24 Respiratory Rate 22 08/20/20 17:24 Respiratory Effort Non-Labored 08/20/20 17:31 Blood Pressure 164/83 H 08/20/20 17:24 Blood Pressure Position Sitting 08/20/20 17:24 Pulse Oximetry 95 08/20/20 17:24 Oxygen Delivery Method Room Air 08/20/20 17:24 Oxygen Flow Rate 0 08/20/20 17:24 Pain Level 5 08/20/20 17:24
--- NOTE | 2020-08-20 18:29 | DI.VRAD_ITS ---
PROCEDURE INFORMATION: Exam: XR Right Hand Exam date and time: 08/20/2020 5:38 PM Age: 75 years old Clinical indication: Other: Trauma TECHNIQUE: Imaging protocol: XR Right hand. Views: 3 or more views. COMPARISON: No relevant prior studies available. FINDINGS: Bones/joints: Osteopenia. Scattered mild arthritic features of the interphalangeal joints. No acute fracture. No dislocation. Old trauma to the right 2nd finger distal phalanx tuft. Soft tissues: No soft tissue swelling or foreign body. TFCC degenerative calcification. IMPRESSION: 1. No acute fracture or dislocation. 2. Scattered mild arthritic features of the interphalangeal joints. 3. Appearance suggesting an old trauma to the tip of the right 2nd finger. Dictated and Authenticated by: Gaston Vazquez MD. Ordering:MUNIR Murdock MD
--- NOTE | 2020-08-20 18:31 | DI.VRAD_ITS ---
PROCEDURE INFORMATION: Exam: XR Right Ribs Exam date and time: 08/20/2020 5:38 PM Age: 75 years old Clinical indication: Right-sided; Chest wall pain TECHNIQUE: Imaging protocol: XR Right ribs. Views: 2 views. COMPARISON: CT HEAD CERVICAL SPINE WO 09/21/2018 5:34 PM FINDINGS: Bones/joints: Right ribs are normal in course, caliber, texture, and density. No fractures. No expansile or lytic lesions. There is severe right AC joint degenerative disease. No apparent fracture of the shoulder girdle. No dislocation. Degenerative thoracic spine disease. Soft tissues: Normal. IMPRESSION: No rib fracture. No focal rib lesion. PROCEDURE INFORMATION: Exam: XR Chest Exam date and time: 08/20/2020 5:38 PM Age: 75 years old Clinical indication: Right-sided; Chest wall pain TECHNIQUE: Imaging protocol: XR of the chest. Views: 2 views. COMPARISON: CT HEAD CERVICAL SPINE WO 09/21/2018 5:34 PM FINDINGS: Lungs: Lung pulido are clear. No infiltrates. No consolidation. Pleural spaces: No pleural effusion. No pneumothorax. Heart/Mediastinum: Mild cardiac enlargement. Bones/joints: Degenerative thoracic spine disease. IMPRESSION: Clear lungs and pleural space. Dictated and Authenticated by: Gaston Vazquez MD. Ordering:MUNIR Murdock MD
--- NOTE | 2020-08-20 18:33 | DI.VRAD_ITS ---
PROCEDURE INFORMATION: Exam: XR Right Knee Exam date and time: 08/20/2020 5:38 PM Age: 75 years old Clinical indication: Other: Trauma TECHNIQUE: Imaging protocol: XR Right knee. Views: 3 views. COMPARISON: CR XR KNEE RT 3V AP,LAT,BENITO 12/20/2018 9:32 AM FINDINGS: Bones/joints: Total right knee arthroplasty. No dislocation. No fracture. No osteolytic bone loosening evident. No joint effusion. Soft tissues: Soft tissue swelling of the anterior infrapatellar region may represent a contusion and hematoma. No soft tissue emphysema. No foreign body. IMPRESSION: 1. No fracture or dislocation. 2. Anterior inferior soft tissue swelling consistent with contusion. 3. Total right knee arthroplasty is unremarkable. 4. Stable exam since 12/20/2018. Dictated and Authenticated by: Gaston Vazquez MD. Ordering:MUNIR Murdock MD
== END 2020-08-20 19:20 | disposition home or self-care (01) ==
PROVIDERS: Emergency Provider Registered Nurse Emergency; PCP Internal Medicine
DX: R07.89 Other chest pain (principal); M79.641 Pain in right hand; M25.561 Pain in right knee; W01.0XXA Fall on same level from slipping, tripping and stumbling without subsequent striking against object, initial encounter
CPT/HCPCS: 73562; 99284; 71046; 71100; 73130; 99283

== ENCOUNTER 2021-07-19 03:40 | Outpatient (CLI) | payer MEDICARE, SELFPAY ==
--- NOTE | 2021-07-19 14:00 | NS.NUTBLAN_ITS ---
Mera was referred to diabetes self management education in view of recent increase of her A1C. 03/31/21 A1C: 8.0% 06/29/21 A1C: 9.0% DM meds: 28 units lantus HS, 500 mg metformin qd, glipizide 5 mg qd. Mera reports taking all meds she is prescribed. She forgot her blood sugar log today. She could not remember what her morning fastings have been. She also could not remember the highest her blood sugars have been this week. She states she never has low blood sugar. 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 In speaking with Mera she verbalized understanding of correct insulin administration and follows a lower carb diet, she also states she checks the expiration of the insulin and does not expose insulin to heat/cold. She does like sweets but mostly tries to avoid them. Mera was forgetful during conversation and had difficulty staying on topic. Some dementia may be occurring. Elevations in blood sugars most likely due to high intakes of carbohydrates/sugar with insulin resistance. Recommendation: Mera may benefit from adding Jardiance to her Dm meds and/or splitting lantus dose to 15 units AM and 15 units PM. Would not add meal time insulin at this time as her ability to count carbs is limited. Recommend d/c glipizide as can lead to hypoglycemia in elderly. No follow up planned at this time.
== END 2021-07-19 03:41 | disposition home or self-care (01) ==
LOC: DS 03:41
PROVIDERS: PCP Internal Medicine; Visit Provider Dietitian, Registered
DX: E11.9 Type 2 diabetes mellitus without complications (principal); Z79.4 Long term (current) use of insulin; Z79.84 Long term (current) use of oral hypoglycemic drugs; Z71.3 Dietary counseling and surveillance
CPT/HCPCS: 97802

== ENCOUNTER → 2021-08-09 00:47 | Outpatient (CLI) | payer MEDICARE, SELFPAY ==
--- NOTE | 2021-08-09 07:15 | DI.MAMMO_ITS ---
Exam(s) MAMMO SCREENING EXAM: MAMMO SCREENING CLINICAL HISTORY: screening,z12.39 TECHNIQUE: Mammograms were interpreted according to the usual protocol including computer analysis w [employer] CAD system, tomosynthesis and C-view imaging. COMPARISON: 2017 and 2018 FINDINGS: The breasts are composed of scattered fibroglandular densities, Breast Density category B. No suspicious masses or suspicious microcalcifications are seen. Are multiple stable small scattered circumscribed nodules. There is scattered coarse benign calcifications. No skin thickening or abnormal axillary lymph nodes are seen. There has been no significant change from prior exams. IMPRESSION: BI-RADS Cat 2 - Benign Findings Yearly screening mammography is recommended. Breast Density - Category B, scattered fibroglandular densities. A negative radiographic report should not delay biopsy if a dominant or clinically suspicious mass is present. Up to ten percent of cancers are not identified on mammography. A negative report may reinforce clinical impression. Adenosis and dense breasts may obscure an underlying neoplasm. False positive reports average 6 to 10%. Patient will receive a letter notifying them of these results.
== END ==
PROVIDERS: PCP Internal Medicine; Visit Provider Internal Medicine
DX: Z12.31 Encounter for screening mammogram for malignant neoplasm of breast (principal)
CPT/HCPCS: 77063; 77067

== ENCOUNTER 2021-08-09 01:53 | Outpatient (CLI) | payer MEDICARE, SELFPAY ==
[2021-08-09 12:29] LABS: COMMENT (LAB VIEW ONLY) 125.32 mg/dL; Microalb ug/mg Crea 57.7 ug/mg Cr
[2021-08-09 13:11] LABS: Anion Gap 8.4 mmol/L (3-11); BUN 19 mg/dL (7-18); CO2 30.6 mmol/L (21.0-32.0); CREATININE 0.9 mg/dL (0.55-1.02); Calculated LDL 92 mg/dL (<100); Chloride 100 mmol/L (98-107); Cholesterol 182 mg/dL (<200); Glucose 288 mg/dL (74-106); HDL Cholesterol 51 mg/dL (40-60); Potassium 3.5 mmol/L (3.5-5.1); Sodium 139 mmol/L (136-145); Triglyceride 196 mg/dL (<150)
== END 2021-08-09 01:54 | disposition home or self-care (01) ==
PROVIDERS: PCP Internal Medicine; Visit Provider Internal Medicine
DX: E11.9 Type 2 diabetes mellitus without complications; I10 Essential (primary) hypertension; E78.00 Pure hypercholesterolemia, unspecified
CPT/HCPCS: 36415; 80048; 80061; 82043; 82570

== ENCOUNTER 2021-09-20 05:08 | Outpatient (CLI) | payer MEDICARE, SELFPAY | END 2021-09-20 05:09 | disposition home or self-care (01) | LOC: LBO 05:08 | PROVIDERS: PCP Internal Medicine; Visit Provider Internal Medicine ==

== ENCOUNTER → 2021-10-04 18:45 | Outpatient (CLI) | payer MEDICARE, SELFPAY ==
--- NOTE | 2021-10-04 14:45 | DI.US_ITS ---
Exam(s) US LOWER EXTREMITY VENOUS LT EXAM: US LOWER EXTREMITY VENOUS LT CLINICAL HISTORY: Swelling i26.99 TECHNIQUE: Left lower extremity venous ultrasound performed using grayscale, color-flow, and spectra l Doppler analysis. COMPARISON: No exams were available for comparison FINDINGS: The left common femoral, femoral and popliteal veins demonstrate normal compressibility, augmentation , and color Doppler. The posterior tibial veins are patent. The saphenofemoral junction is unremarka ble. There is no evidence of a St cyst. The soft tissues are unremarkable. IMPRESSION: No evidence of a left lower extremity DVT. DATA REPOSITORY:
== END ==
PROVIDERS: PCP Internal Medicine; Visit Provider Internal Medicine
DX: I26.99 Other pulmonary embolism without acute cor pulmonale (principal)
CPT/HCPCS: 93971

== ENCOUNTER 2022-01-19 15:10 | Outpatient (REF) | payer MEDICARE, SELFPAY ==
[2022-01-21 02:22] LABS: COVID-19 RT-PCR UVMMC Result Negative (Negative)
[2022-01-21 08:22] LABS: Influenza A RNA Result Negative (Negative); Influenza B RNA Result Negative (Negative); RSV RNA Result Negative (Negative)
== END 2022-01-19 15:11 | disposition home or self-care (01) ==
LOC: LBN 15:10
PROVIDERS: PCP Student in an Organized Health Care Education/Training Program; Visit Provider Student in an Organized Health Care Education/Training Program
DX: J06.9 Acute upper respiratory infection, unspecified (principal); Z20.822 Contact with and (suspected) exposure to COVID-19
CPT/HCPCS: 87631; 87637; U0003

== ENCOUNTER 2022-05-30 13:44 | Outpatient (REF) | payer MEDICARE, SELFPAY ==
[2022-05-30 19:13] LABS: HCT 43.4 % (36.0-46.0); HGB 13.8 g/dL (11.2-15.7); MCH 28.6 pg (27.0-33.0); MCHC 31.8 % (32.0-36.0); MCV 90 fL (80-95); MPV 12.7 fL (8.0-11.0); Platelet Count 193 10^3/uL (130-400); RBC 4.82 10^6/uL (3.93-5.22); RDW 14.2 % (11.7-14.6); RDW-SD 46.5 fL; WBC 7.89 10^3/uL (4.4-10.8)
[2022-05-30 19:35] LABS: Hemoglobin A1C 8.2 % (<5.7)
[2022-05-30 21:24] LABS: ALT 26 U/L (14-59); AST 18 U/L (15-37); Albumin 3.7 g/dL (3.4-5.0); Alkaline Phosphatase 56 U/L (46-116); Anion Gap 7.6 mmol/L (3-11); BUN 29 mg/dL (7-18); Bilirubin, Total 0.3 mg/dL (0.2-1.0); CO2 28.4 mmol/L (21.0-32.0); CREATININE 0.9 mg/dL (0.55-1.02); Calcium 9.3 mg/dL (8.5-10.1); Calculated LDL 102 mg/dL (<100); Chloride 104 mmol/L (98-107); Cholesterol 180 mg/dL (<200); Estimated GFR 66.26 (mL/min/1.73m2); Glucose 139 mg/dL (74-106); HDL Cholesterol 51 mg/dL (40-60); Magnesium 2.4 mg/dL (1.8-2.4); Potassium 3.5 mmol/L (3.5-5.1); Sodium 140 mmol/L (136-145); Triglyceride 135 mg/dL (<150); Vitamin B12 274 pg/mL (193-986)
== END 2022-05-30 13:45 | disposition home or self-care (01) ==
LOC: LBN 13:44
PROVIDERS: PCP Student in an Organized Health Care Education/Training Program; Referring Provider Nurse Practitioner; Visit Provider Nurse Practitioner
DX: E11.319 Type 2 diabetes mellitus with unspecified diabetic retinopathy without macular edema (principal); I10 Essential (primary) hypertension; F32.A Depression, unspecified; G43.909 Migraine, unspecified, not intractable, without status migrainosus; G62.9 Polyneuropathy, unspecified; R41.3 Other amnesia; Z79.01 Long term (current) use of anticoagulants
CPT/HCPCS: 80053; 80061; 85027; 82607; 82746; 83036; 83735

== ENCOUNTER 2022-08-07 10:07 | Outpatient (CLI) | payer MEDICARE, SELFPAY ==
[2022-08-07 10:18] LABS: Anion Gap 5.4 mmol/L (3-11); BUN 20 mg/dL (7-18); CO2 32.6 mmol/L (21.0-32.0); CREATININE 0.9 mg/dL (0.55-1.02); Calcium 9.6 mg/dL (8.5-10.1); Chloride 102 mmol/L (98-107); Estimated GFR 66.26 (mL/min/1.73m2); Glucose 211 mg/dL (74-106); Potassium 3.9 mmol/L (3.5-5.1); Sodium 140 mmol/L (136-145)
== END 2022-08-07 10:08 | disposition home or self-care (01) ==
LOC: LBO 10:19
PROVIDERS: PCP Student in an Organized Health Care Education/Training Program; Visit Provider Student in an Organized Health Care Education/Training Program
DX: E11.9 Type 2 diabetes mellitus without complications (principal); I10 Essential (primary) hypertension
CPT/HCPCS: 36415; 80048

== ENCOUNTER 2022-08-29 13:22 | Outpatient (REF) | payer MEDICARE, SELFPAY ==
[2022-08-29 20:02] LABS: ALT 29 U/L (14-59); AST 17 U/L (15-37); Albumin 3.4 g/dL (3.4-5.0); Alkaline Phosphatase 57 U/L (46-116); Anion Gap 7.9 mmol/L (3-11); BUN 30 mg/dL (7-18); Bilirubin, Total 0.5 mg/dL (0.2-1.0); CO2 31.1 mmol/L (21.0-32.0); CREATININE 0.9 mg/dL (0.55-1.02); Calcium 9.4 mg/dL (8.5-10.1); Chloride 103 mmol/L (98-107); Estimated GFR 66.26 (mL/min/1.73m2); Glucose 164 mg/dL (74-106); Potassium 3.3 mmol/L (3.5-5.1); Sodium 142 mmol/L (136-145); Total Protein 7.7 g/dL (6.4-8.2)
== END 2022-08-29 13:23 | disposition home or self-care (01) ==
LOC: LBN 13:22
PROVIDERS: PCP Student in an Organized Health Care Education/Training Program; Visit Provider Student in an Organized Health Care Education/Training Program
DX: E11.65 Type 2 diabetes mellitus with hyperglycemia (principal); Z79.899 Other long term (current) drug therapy; Z51.81 Encounter for therapeutic drug level monitoring
CPT/HCPCS: 80053

== ENCOUNTER 2022-09-18 13:29 | Outpatient (CLI) | payer MEDICARE, SELFPAY ==
--- NOTE | 2022-09-18 13:41 | DI.RAD_ITS ---
Exam(s) XR KNEE RT 3V AP,LAT,BENITO EXAM: XR KNEE RT 3V AP,LAT,BENITO CLINICAL HISTORY: RIGHT KNEE PAIN. TECHNIQUE: 2D digital imaging was performed. Three views. COMPARISON: CR,XR XR KNEE RT 3V AP,LAT,BENITO from 08/20/2020 FINDINGS: There has been no change in the alignment of the total knee prosthesis. There are no abnormal surrou nding bony lucencies. No visible joint effusion. IMPRESSION: Stable appearance of knee prosthesis. DATA REPOSITORY: RADIATION DOSE DELIVERED:
== END 2022-09-18 13:30 | disposition home or self-care (01) ==
LOC: DIORS 13:29
PROVIDERS: PCP Student in an Organized Health Care Education/Training Program; Referring Provider Student in an Organized Health Care Education/Training Program; Visit Provider Student in an Organized Health Care Education/Training Program
DX: M25.561 Pain in right knee (principal); M76.31 Iliotibial band syndrome, right leg; Z96.653 Presence of artificial knee joint, bilateral
CPT/HCPCS: 73562; 99213

== ENCOUNTER 2023-01-11 10:41 | Outpatient (RCR) | payer MEDICARE, SELFPAY ==
--- NOTE | 2023-01-11 13:00 | HOLTER_ITS ---
APPROVED REPORT Conclusion This is a 48-hour Holter monitor ordered for bradycardia Rhythm throughout was sinus with an average heart rate of 83. Minimum was 54, maximum 141 There were moderately frequent premature ventricular contractions comprising 5.4% of total. Periods of bigeminy were noted There were no supraventricular dysrhythmias or atrial fibrillation There was no high-grade AV block, no pauses greater than 3 seconds No patient symptoms were reported
== END 2023-02-01 23:59 | disposition home or self-care (01) ==
LOC: CARDOPNVT 10:41
PROVIDERS: PCP Student in an Organized Health Care Education/Training Program; Visit Provider Student in an Organized Health Care Education/Training Program
DX: I49.3 Ventricular premature depolarization (principal)
CPT/HCPCS: 93227; 93225; 93226

== ENCOUNTER 2023-02-09 09:43 | Outpatient (CLI) | payer MEDICARE, SELFPAY | END 2023-02-09 09:44 | disposition home or self-care (01) | LOC: DI.KIM 09:44 | PROVIDERS: PCP Student in an Organized Health Care Education/Training Program; Visit Provider Student in an Organized Health Care Education/Training Program | DX: I49.9 Cardiac arrhythmia, unspecified (principal) | CPT/HCPCS: 93010 ==

== ENCOUNTER 2023-03-13 12:39 | Outpatient (CLI) | payer MEDICARE, SELFPAY ==
--- NOTE | 2023-03-13 12:30 | RT.EKG_ITS ---
APPROVED REPORT Exam: Resting ECG Reason for Exam: irregular hr Patient Location: O HR:93 bpm ECG Measurements Heart Rate 93 AXIS HI 147 P 22 QRSd 98 QRS -26 QT 387 T 63 QTc 482 Conclusion Sinus rhythm...normal P axis, V-rate 50- 99 Ventricular bigeminy...bigeminy string>4 w/ V complexes Borderline left axis deviation...QRS axis (-15,-29) I have reviewed and interpreted ECG and agree with software generated interpretation.
== END 2023-03-13 12:40 | disposition home or self-care (01) ==
LOC: DI.KIM 12:40
PROVIDERS: PCP Student in an Organized Health Care Education/Training Program; Visit Provider Student in an Organized Health Care Education/Training Program
DX: I49.9 Cardiac arrhythmia, unspecified (principal)
CPT/HCPCS: 93010

== ENCOUNTER → 2023-03-20 02:36 | Outpatient (CLI) | payer MEDICARE, SELFPAY ==
--- NOTE | 2023-03-20 06:45 | DI.MRI_ITS ---
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 COMPARISON: No exams were available for comparison FINDINGS: CEREBRAL PARENCHYMA: There is no evidence of intracranial hemorrhage, mass effect, or shift of midline structures. There are no extra-axial fluid collections. There is symmetrical atrophy noted. Lateral ventricles are sl ightly prominent but commensurate with the size of the overlying cortical sulci. There is no significant focal signal abnormality in the cerebellar hemispheres nor within the henrry, m idbrain, and thalami. There is abundant bilateral periventricular signal abnormality consistent with chronic small vessel d isease. No evidence of hemorrhage nor restricted diffusion. There is no significant focal signal abnormality evident on diffusion imaging to suggest acute ischem ic event. PITUITARY GLAND: No mass nor parasellar abnormality. No obvious abnormality in the cavernous sinuses. FLOW VOIDS: The expected flow void are noted. No evidence of obvious aneurysm nor obvious vascular ma lformation. PARANASAL SINUSES: There is opacification of the right frontal sinus. Ethmoidal air cells are clear as are the maxillary sinuses and sphenoid sinuses. There are no effusions in the mastoid air cells. ORBITS: No obvious findings. IMPRESSION: There is moderate symmetrical atrophy and there is abundant periventricular signal abnormality consis tent with chronic small vessel disease. Ventricles are slightly prominent in size but commensurate w ith the size of the overlying cortical sulci. No evidence of acute ischemic event. There is fluid opacification of the right frontal sinus consistent with sinusitis. The left frontal sinus is not developed. Other paranasal sinuses as well as ethmoidal air cells are clear. DATA REPOSITORY:
== END ==
PROVIDERS: PCP Student in an Organized Health Care Education/Training Program; Visit Provider Student in an Organized Health Care Education/Training Program
DX: I67.82 Cerebral ischemia (principal); R41.3 Other amnesia
CPT/HCPCS: 70551

== ENCOUNTER → 2023-03-29 02:38 | Outpatient (CLI) | payer MEDICARE, SELFPAY ==
--- NOTE | 2023-03-29 08:30 | DI.US_ITS ---
APPROVED REPORT EXAM: Comprehensive 2D, Doppler, and color-flow Echocardiogram Patient Location: Out-Patient Substitute School Nurse: Kenneth Huertas RDCS (AE) Indications: Evaluate heart function, HTN, widened pulse pressure Conclusion 1. Normal chamber sizes. 2. Normal LV function, EF 60-65%. Normal RV function. 3. Mild aortic sclerosis, otherwise normal valves. No significant regurgitation or stenosis. 4. No pericardial effusion. Wall motion Left Ventricle Left ventricle is borderline dilated. The left ventricular systolic function is normal. The left vent ricular ejection fraction is within the normal range. There is normal left ventricular wall thickness . There is normal LV segmental wall motion. There is no ventricular septal defect visualized. LVEF is 57-60%. Right Ventricle The right ventricle is normal size. The right ventricular systolic function is normal. Atria The left atrium size is normal. The right atrium size is normal. The interatrial septum is intact wit h no evidence for an atrial septal defect. Aortic Valve The Aortic valve is sclerotic. Aortic valve is probably trileaflet. There is no aortic valvular steno sis. No aortic regurgitation is present. Mitral Valve The mitral valve is normal in structure. No evidence of mitral valve stenosis. There is no mitral isrrael ve regurgitation noted. Tricuspid Valve The tricuspid valve is normal in structure. There is no tricuspid valve stenosis. Trace tricuspid reg urgitation. Unable to assess PA pressure. Pulmonic Valve The pulmonary valve is normal in structure. There is no pulmonic valvular stenosis. There is no pulmo karey valvular regurgitation. Great Vessels The aortic root is normal in size. The ascending aorta is mildly dilated. Aortic arch is normal in ca liber. IVC is normal in size and collapses >50% with inspiration. Pericardium There is no pericardial effusion. 2D Dimensions IVSD d PLAX 0.88 cm F: 0.6-1.0 Ao Root d 3.22 cm F: 2.7 - 3.3 LVPW d PLAX 0.87 cm F: 0.6 - 1.0 Ao Asc Diam d 3.76 cm F: 2.3 - 3.1 LVID d PLAX 5.30 cm F: 3.8 - 5.2 LVDs 3.61 cm F: 2.2 - 3.5 LV EF Teichholz 59.6 % FS 31.91 % LV EDV (Teich) 135.1 mL LV ESV (Teich) 54.6 mL Stroke Vol Index (Teich) 42.12 Auto EF LV EDV A4C 113.3 mL LV EDV A2C 114.5 mL LV EDV BP 112.2 mL LV ESV A4C 45.1 mL LV ESV A2C 49.0 mL LV ESV BP 46.1 mL LVEF(%) A4C 60.2 % LVEF(%) A2C 57.2 % LVEF(%) BP 58.9 % LV SV A4C 68.2 ml LV SV A2C 65.5 ml LV SV BP 66.1 ml LV CO A4C 6.7 L/min LV CO A2C 5.8 L/min LV CO BP 6.2 L/min HR A4C 98.10 BPM HR A2C 87.81 BPM LV EDV Index (BP) LA Volume LA Length A4C 5.2 cm LA Length A2C 5.0 cm LA Area A4C s 10.99 cm2 LA Area A2C s 14.30 cm2 LA Vol A4C A-L 19.67 mL LA Vol A2C A-L 34.85 mL LA Vol Biplane A-L 26.8 mL LA Vol/BSA A4C A-L LA Vol/BSA A2C A-L LA Vol/BSA BP A-L 14.0 mL/m2 LA Vol A4C MOD 18.8 mL LA Vol A2C MOD 33.4 mL LA Vol BP MOD 25.1 mL RA Volume RA Area A4C 6.7 cm2 RA ESV A4C (A-L) 11.1mL RA Vol/BSA A4C A-L RA Length A4C 3.5 cm RA ESV A4C (MOD) 10.8mL LV Diastology MV E' medial 0.073 (>0.07 m/s) MV E Vmax 0.63 (0.4-1.3 m/s) MV E/E' MED 8.61 (<14) MV A Vmax 1.10 (0.4-1.3 m/s) MV E' lateral 0.094 (>0.1 m/s) E/A Ratio 0.6 MV E/E' LAT 6.65 (<14) MV E' Average 0.083 m/s MV E/E'(average) 7.50 Aortic Valve AoV Vmax 1.81 m/s LVOT Vmax 0.80 m/s AoV Peak Grad 13.1 mmHg LVOT Peak Grad 2.5 mmHg AoV Area (Vmax) 1.35 cm2 LVOT VTI 0.156 m AoV VTI 0.332 m LVOT Mean Grad 1.5 mmHg AoV Mean Mundo. 1.28 m/s LVOT SV 47.91 mL AoV Mean Grad 7.6 mmHg LVOT Diam s 1.95 cm AoV Area (VTI) 1.44 cm2 Velocity Ratio 0.44 Mitral Valve MV DT 192 (160-240 msec) Pulmonary Valve PV Vmax 1.04 (0.5-1.5 m/s) RVOT Vmax 0.72 m/s PV Peak Grad 4.4 mmHg RVOT Peak Gr. 2.1 mmHg PV Mean Mundo 0.72 m/s RVOT VTI 0.121 m PV Mean Grad 2.3 mmHg RVOT Mean Gr. 0.9 mmHg
== END ==
PROVIDERS: PCP Student in an Organized Health Care Education/Training Program; Visit Provider Student in an Organized Health Care Education/Training Program
DX: I10 Essential (primary) hypertension (principal); R00.1 Bradycardia, unspecified; R09.89 Other specified symptoms and signs involving the circulatory and respiratory systems
CPT/HCPCS: 93306

== ENCOUNTER 2023-07-18 08:48 | Outpatient (CLI) | payer MEDICARE, SELFPAY ==
[2023-07-18 09:26] LABS: Anion Gap 6.4 mmol/L (3-11); BUN 20 mg/dL (7-18); CO2 32.6 mmol/L (21.0-32.0); CREATININE 0.9 mg/dL (0.55-1.02); Calcium 9.1 mg/dL (8.5-10.1); Calculated LDL 94 mg/dL (<100); Chloride 99 mmol/L (98-107); Cholesterol 176 mg/dL (<200); Estimated GFR 65.84 (mL/min/1.73m2); Glucose 284 mg/dL (74-106); HDL Cholesterol 68 mg/dL (40-60); Magnesium 1.9 mg/dL (1.8-2.4); Potassium 3.8 mmol/L (3.5-5.1); Sodium 138 mmol/L (136-145); TSH (W/Ref FT4) 2.77 uIU/mL (0.36-3.74); Triglyceride 73 mg/dL (<150)
[2023-07-18 09:40] LABS: Vitamin D 25 Total 29.4 ng/mL (30-100)
[2023-07-18 09:43] LABS: Hemoglobin A1C 9.7 % (<5.7)
== END 2023-07-18 08:49 | disposition home or self-care (01) ==
LOC: LBO 08:49
PROVIDERS: PCP Student in an Organized Health Care Education/Training Program; Visit Provider Emergency Medicine
DX: E11.9 Type 2 diabetes mellitus without complications (principal); E87.6 Hypokalemia; K90.9 Intestinal malabsorption, unspecified
CPT/HCPCS: 36415; 80048; 80061; 82306; 83036; 83735; 84443

== ENCOUNTER → 2023-11-20 13:46 | Outpatient (BNVA) | payer MEDICARE, SELFPAY | PROVIDERS: PCP Student in an Organized Health Care Education/Training Program; Referring Provider Student in an Organized Health Care Education/Training Program; Visit Provider Nurse Practitioner Adult Health | DX: G30.9 Alzheimer's disease, unspecified (principal); F02.80 Dementia in other diseases classified elsewhere, unspecified severity, without behavioral disturbance, psychotic disturbance, mood disturbance, and anxiety | CPT/HCPCS: 99215 ==

== ENCOUNTER 2023-11-30 13:09 | Outpatient (CLI) | payer MEDICARE, MEDICAID, SELFPAY ==
--- NOTE | 2023-11-30 12:39 | DI.RAD_ITS ---
Exam(s) XR HIP LT COMPLETE AP PELVIS EXAM: XR HIP LT COMPLETE AP PELVIS CLINICAL HISTORY: 6 weeks of lt lateral hip pain, M25.552. TECHNIQUE: 2D digital imaging was performed of the left hip. Three views were obtained. AP pelvis and lateral left hip views were obtained. COMPARISON: CR XR hip LT complete AP pelvis from 10/01/2018 FINDINGS: BONES: No acute fracture is present. No bony destructive lesion is seen. JOINTS: No dislocation present. There are degenerative changes seen of the hips characterized by join t space narrowing. There are degenerative changes seen in the lower lumbar spine. SOFT TISSUE: Vascular calcifications are present. IMPRESSION: 1. Mild degenerative changes seen in the left hip. 2. No acute fracture or dislocation. DATA REPOSITORY: RADIATION DOSE DELIVERED:
== END 2023-11-30 13:29 ==
LOC: DI 13:09
PROVIDERS: PCP Student in an Organized Health Care Education/Training Program; Visit Provider Family Medicine
DX: M25.552 Pain in left hip (principal)
CPT/HCPCS: 73502

== ENCOUNTER 2023-12-06 01:56 | Outpatient (CLI) | payer MEDICARE, SELFPAY ==
[2023-12-06 11:54] LABS: HCT 41.7 % (36.0-46.0); HGB 13.4 g/dL (11.2-15.7); MCH 29.1 pg (27.0-33.0); MCHC 32.1 % (32.0-36.0); MCV 91 fL (80-95); MPV 11.4 fL (8.0-11.0); Platelet Count 192 10^3/uL (130-400); RBC 4.61 10^6/uL (3.93-5.22); RDW 14.4 % (11.7-14.6); RDW-SD 47.5 fL; WBC 6.55 10^3/uL (4.4-10.8)
[2023-12-06 12:02] LABS: Hemoglobin A1C 11.7 % (<5.7)
[2023-12-06 12:25] LABS: ALT 16 U/L (14-59); AST 10 U/L (15-37); Albumin 3.3 g/dL (3.4-5.0); Alkaline Phosphatase 60 U/L (46-116); Anion Gap 8.3 mmol/L (3-11); BUN 21 mg/dL (7-18); Bilirubin, Total 0.45 mg/dL (0.2-1.0); CO2 30.7 mmol/L (21.0-32.0); Calcium 9.6 mg/dL (8.5-10.1); Calculated LDL 77 mg/dL (<100); Chloride 98 mmol/L (98-107); Cholesterol 183 mg/dL (<200); Estimated GFR 58.02 (mL/min/1.73m2); Glucose 320 mg/dL (74-106); HDL Cholesterol 65 mg/dL (40-60); Potassium 3.3 mmol/L (3.5-5.1); Sodium 137 mmol/L (136-145); Total Protein 7.5 g/dL (6.4-8.2); Triglyceride 206 mg/dL (<150)
== END 2023-12-06 01:57 | disposition home or self-care (01) ==
LOC: LBO 01:56
PROVIDERS: PCP Student in an Organized Health Care Education/Training Program; Visit Provider Student in an Organized Health Care Education/Training Program
DX: R53.83 Other fatigue; R73.09 Other abnormal glucose; G62.9 Polyneuropathy, unspecified; R26.81 Unsteadiness on feet; Z86.2 Personal history of diseases of the blood and blood-forming organs and certain disorders involving the immune mechanism
CPT/HCPCS: 36415; 80053; 80061; 85027; 83036

== ENCOUNTER → 2023-12-17 13:03 | Outpatient (BNVA) | payer MEDICARE, SELFPAY | PROVIDERS: PCP Student in an Organized Health Care Education/Training Program; Referring Provider Student in an Organized Health Care Education/Training Program; Visit Provider Podiatrist | DX: E11.51 Type 2 diabetes mellitus with diabetic peripheral angiopathy without gangrene (principal); L60.3 Nail dystrophy; E11.319 Type 2 diabetes mellitus with unspecified diabetic retinopathy without macular edema; B35.1 Tinea unguium; B35.3 Tinea pedis; Z79.01 Long term (current) use of anticoagulants; M79.674 Pain in right toe(s); M79.675 Pain in left toe(s); L84 Corns and callosities; R09.89 Other specified symptoms and signs involving the circulatory and respiratory systems; R20.8 Other disturbances of skin sensation; R23.8 Other skin changes; R60.0 Localized edema | CPT/HCPCS: 11055; 11721 ==

== ENCOUNTER → 2024-01-03 10:55 | Outpatient (BNVA) | payer MEDICARE, SELFPAY | PROVIDERS: PCP Student in an Organized Health Care Education/Training Program; Referring Provider Student in an Organized Health Care Education/Training Program; Visit Provider Surgery | DX: R19.8 Other specified symptoms and signs involving the digestive system and abdomen (principal) | CPT/HCPCS: 99214 ==

== ENCOUNTER 2024-02-11 10:55 | Outpatient (CLI) | payer MEDICARE, SELFPAY ==
[2024-02-11 11:00] LABS: HGB 13.5 g/dL (11.2-15.7)
[2024-02-11 11:37] LABS: Albumin 3.3 g/dL (3.4-5.0); Anion Gap 8.3 mmol/L (3-11); BUN 26 mg/dL (7-18); CO2 28.7 mmol/L (21.0-32.0); Calcium 9.1 mg/dL (8.5-10.1); Chloride 103 mmol/L (98-107); Estimated GFR 58.02 (mL/min/1.73m2); Glucose 273 mg/dL (74-106); Magnesium 2.1 mg/dL (1.8-2.4); Potassium 3.9 mmol/L (3.5-5.1); Sodium 140 mmol/L (136-145); Vitamin D 25 Total 26.6 ng/mL (30-100)
[2024-02-11 14:26] LABS: Hemoglobin A1C 10.2 % (<5.7)
== END 2024-02-11 10:56 | disposition home or self-care (01) ==
PROVIDERS: PCP Student in an Organized Health Care Education/Training Program; Visit Provider Student in an Organized Health Care Education/Training Program
DX: Z91.89 Other specified personal risk factors, not elsewhere classified (principal); N18.9 Chronic kidney disease, unspecified; R73.09 Other abnormal glucose; Z86.2 Personal history of diseases of the blood and blood-forming organs and certain disorders involving the immune mechanism; K90.9 Intestinal malabsorption, unspecified; R77.0 Abnormality of albumin
CPT/HCPCS: 36415; 80048; 82306; 82040; 83036; 83735; 85018

== ENCOUNTER → 2024-02-19 09:54 | Outpatient (BNVA) | payer MEDICARE, SELFPAY | PROVIDERS: PCP Student in an Organized Health Care Education/Training Program; Referring Provider Student in an Organized Health Care Education/Training Program; Visit Provider Nurse Practitioner Adult Health | DX: G30.9 Alzheimer's disease, unspecified (principal); F02.80 Dementia in other diseases classified elsewhere, unspecified severity, without behavioral disturbance, psychotic disturbance, mood disturbance, and anxiety | CPT/HCPCS: 99214 ==

== ENCOUNTER 2024-06-09 18:33 | Outpatient (REF) | payer MEDICARE, MEDICAID, SELFPAY ==
[2024-06-09 19:22] LABS: Abs Immature Grans 0.02 10^3/uL (0.0-0.06); Absolute Basophil Count 0.03 10^3/uL (0.0-0.2); Absolute Eosinophil Count 0.11 10^3/uL (0.0-0.7); Absolute Lymphocyte Count 1.76 10^3/uL (1.2-3.4); Absolute Monocyte Count 0.62 10^3/uL (0.1-0.8); Absolute Neutrophil Count 4.29 10^3/uL (1.2-6.7); Basophils % 0.4 %; Eosinophils % 1.6 %; HCT 40.5 % (36.0-46.0); HGB 12.7 g/dL (11.2-15.7); Immature Grans % 0.3 %; Lymphocytes % 25.8 %; MCH 28.7 pg (27.0-33.0); MCHC 31.4 % (32.0-36.0); MCV 92 fL (80-95); MPV 12.6 fL (8.0-11.0); Monocytes % 9.1 %; Neutrophils % 62.8 %; Platelet Count 185 10^3/uL (130-400); RBC 4.42 10^6/uL (3.93-5.22); RDW 14.6 % (11.7-14.6); RDW-SD 49.4 fL; WBC 6.83 10^3/uL (4.4-10.8)
[2024-06-09 19:53] LABS: Iron 43 ug/dL (50-170); Total Iron Binding Capacity 235 ug/dL (250-450); Transferrin Sat 18 % (15-50)
[2024-06-09 19:55] LABS: Hemoglobin A1C 10.5 % (<5.7)
[2024-06-09 20:18] LABS: ALT 31 U/L (14-59); AST 21 U/L (15-37); Albumin 3.1 g/dL (3.4-5.0); Alkaline Phosphatase 69 U/L (46-116); Anion Gap 5.9 mmol/L (3-11); BUN 20 mg/dL (7-18); Bilirubin, Total 0.5 mg/dL (0.2-1.0); CO2 33.1 mmol/L (21.0-32.0); CREATININE 0.9 mg/dL (0.55-1.02); Calcium 8.9 mg/dL (8.5-10.1); Chloride 100 mmol/L (98-107); Estimated GFR 65.44 (mL/min/1.73m2); Ferritin 179 ng/mL (8-252); Glucose 341 mg/dL (74-106); Magnesium 2.1 mg/dL (1.8-2.4); Potassium 3.3 mmol/L (3.5-5.1); Sodium 139 mmol/L (136-145); TSH (W/Ref FT4) 2.44 uIU/mL (0.36-3.74); Total Protein 6.8 g/dL (6.4-8.2); Vitamin B12 380 pg/mL (193-986); Vitamin D 25 Total 24 ng/mL (30-100)
[2024-06-09 20:36] LABS: NT-proBNP 63 pg/mL (<300)
== END 2024-06-09 18:34 | disposition home or self-care (01) ==
LOC: LBN 18:33
PROVIDERS: PCP Nurse Practitioner Family; Visit Provider Nurse Practitioner Gerontology
DX: I50.22 Chronic systolic (congestive) heart failure (principal); R73.03 Prediabetes; E87.8 Other disorders of electrolyte and fluid balance, not elsewhere classified
CPT/HCPCS: 80053; 82306; 82607; 82728; 82746; 83036; 83540; 83550; 83735; 83880; 84443; 85025

== ENCOUNTER 2024-09-04 17:55 | Outpatient (REF) | payer MEDICARE, MEDICAID, SELFPAY ==
[2024-09-04 19:46] LABS: Abs Immature Grans 0.01 10^3/uL (0.0-0.06); HCT 41.0 % (36.0-46.0); HGB 13.2 g/dL (11.2-15.7); Immature Grans % 0.1 %; MCH 28.9 pg (27.0-33.0); MCHC 32.2 % (32.0-36.0); MCV 90 fL (80-95); MPV 12.0 fL (8.0-11.0); Platelet Count 197 10^3/uL (130-400); RBC 4.56 10^6/uL (3.93-5.22); RDW 13.8 % (11.7-14.6); RDW-SD 45.0 fL; WBC 6.78 10^3/uL (4.4-10.8)
[2024-09-04 19:59] LABS: ALT 27 U/L (14-59); AST 16 U/L (15-37); Albumin 3.6 g/dL (3.4-5.0); Alkaline Phosphatase 77 U/L (46-116); Anion Gap 11.1 mmol/L (3-11); BUN 19 mg/dL (7-18); Bilirubin, Total 0.4 mg/dL (0.2-1.0); CO2 26.9 mmol/L (21.0-32.0); Calcium 9.3 mg/dL (8.5-10.1); Chloride 101 mmol/L (98-107); Estimated GFR 57.66 (mL/min/1.73m2); Glucose 370 mg/dL (74-106); Potassium 3.9 mmol/L (3.5-5.1); Sodium 139 mmol/L (136-145); Total Protein 7.6 g/dL (6.4-8.2)
[2024-09-04 20:18] LABS: Hemoglobin A1C 9.5 % (<5.7)
== END 2024-09-04 17:56 | disposition home or self-care (01) ==
LOC: LBN 17:55
PROVIDERS: PCP Nurse Practitioner Family; Visit Provider Nurse Practitioner Gerontology
DX: R73.03 Prediabetes (principal); E87.8 Other disorders of electrolyte and fluid balance, not elsewhere classified; D63.1 Anemia in chronic kidney disease
CPT/HCPCS: 80053; 83036; 85025

== ENCOUNTER 2024-12-23 18:09 | Outpatient (REF) | payer MEDICARE, MEDICAID, SELFPAY ==
[2024-12-23 15:41] LABS: Abs Immature Grans 0.01 10^3/uL (0.0-0.06); HCT 41.1 % (36.0-46.0); HGB 13.4 g/dL (11.2-15.7); Immature Grans % 0.1 %; MCH 29.3 pg (27.0-33.0); MCHC 32.6 % (32.0-36.0); MCV 90 fL (80-95); MPV 11.6 fL (8.0-11.0); Platelet Count 226 10^3/uL (130-400); RBC 4.57 10^6/uL (3.93-5.22); RDW 13.2 % (11.7-14.6); RDW-SD 43.6 fL; WBC 7.66 10^3/uL (4.4-10.8)
[2024-12-23 16:08] LABS: ALT 24 U/L (14-59); AST 18 U/L (15-37); Albumin 3.5 g/dL (3.4-5.0); Alkaline Phosphatase 59 U/L (46-116); Anion Gap 11.1 mmol/L (3-11); BUN 17 mg/dL (7-18); Bilirubin, Total 0.6 mg/dL (0.2-1.0); CO2 31.9 mmol/L (21.0-32.0); Calcium 9.4 mg/dL (8.5-10.1); Chloride 94 mmol/L (98-107); Estimated GFR 65.44 (mL/min/1.73m2); Glucose 265 mg/dL (74-106); Potassium 3.3 mmol/L (3.5-5.1); Sodium 137 mmol/L (136-145); TSH (W/Ref FT4) 1.34 uIU/mL (0.36-3.74); Total Protein 7.6 g/dL (6.4-8.2)
[2024-12-23 16:58] LABS: Hemoglobin A1C 9.4 % (<5.7)
== END 2024-12-23 18:10 | disposition home or self-care (01) ==
LOC: LBN 18:09
PROVIDERS: PCP Legal Medicine; Visit Provider Nurse Practitioner Gerontology
DX: R73.03 Prediabetes (principal); R53.82 Chronic fatigue, unspecified; E87.8 Other disorders of electrolyte and fluid balance, not elsewhere classified; D63.1 Anemia in chronic kidney disease
CPT/HCPCS: 80053; 83036; 84443; 85025